=== PATIENT | male | born 1990 | race Two or more races ===

== ENCOUNTER 2017-11-27 00:16 | Emergency (ER) | payer SELFPAY ==
[2017-11-27 00:52] LABS: ADD MAN DIFF? NO
[2017-11-27 00:54] LABS: BASO # 0.1 x10^3/uL (0.0-0.2); BASO % 1 % (0-3); EOS % 0 % (0-3); HEMATOCRIT 50.2 % (39.0-53.0); HEMOGLOBIN 17.7 g/dL (13.0-17.5); LYMPH # 1.8 x10^3/uL (1.0-4.8); LYMPH % 14 % (24-48); MEAN CORPUSCULAR HEMOGLOBIN 33 pg (25-35); MEAN CORPUSCULAR HGB CONC 35 g/dL (31-37); MEAN CORPUSCULAR VOLUME 94 fL (79-100); MONO # 1.1 x10^3/uL (0.0-1.1); MONO % 8 % (0-9); NEUT # 10.2 x10^3uL (1.8-7.7); NEUT % 77 % (31-73); PLATELET COUNT 416 x10^3/uL (140-400); RED BLOOD COUNT 5.35 x10^6/uL (4.30-5.70); RED CELL DISTRIBUTION WIDTH 14.1 % (11.5-14.5); WHITE BLOOD COUNT 13.3 x10^3/uL (4.0-11.0)
[2017-11-27] MEDS: IV NORMAL SALINE 1000ML BAG 1,000 ML IV ×2 (00:55→02:20)
[2017-11-27 01:02] LABS: ANION GAP 14 (6-14); BLOOD UREA NITROGEN 16 mg/dL (8-26); BUN/CREATININE RATIO 12 (6-20); CALCIUM 9.6 mg/dL (8.5-10.1); CARBON DIOXIDE 24 mmol/L (21-32); CHLORIDE 99 mmol/L (98-107); CREATININE 1.3 mg/dL (0.7-1.3); GFR 66.2; GLUCOSE 116 mg/dL (70-99); SODIUM 137 mmol/L (136-145)
[2017-11-27 01:08] LABS: ALBUMIN 4.2 g/dL (3.4-5.0); ALBUMIN/GLOBULIN RATIO 0.8 (1.0-1.7); ALK PHOS 110 U/L (46-116); ALT (SGPT) 32 U/L (16-63); AST (SGOT) 21 U/L (15-37); TOTAL BILIRUBIN 0.8 mg/dL (0.2-1.0); TOTAL PROTEIN 9.4 g/dL (6.4-8.2)
== END 2017-11-27 03:48 | disposition home or self-care (01) ==
LOC: ER 00:16
DX: F41.9 Anxiety disorder, unspecified (principal); F15.10 Other stimulant abuse, uncomplicated
CPT/HCPCS: 36415; 71045; 80053; 85025; 93005; 96374; 99285-25; J2060; J7030